=== PATIENT | female | born 1935 | race Caucasian/White ===

== ENCOUNTER → 2017-01-24 | Outpatient (CLI) | payer MEDICARE, OTHER ==
[~2017-01-24] MED LIST: ASPIRIN; BENICAR HCT 40-1 TAB PO; FISH OIL 1,0001 CAP PO; HYZAAR 100-25 T1 TAB; MULTI-VITAMIN1 TAB PO; OYSTER CALCIUM500 MG PO; PRADAXA150 MG PO; SYNTHROID PO; TOPROL XL PO; VIT C PO; ZOCOR PO
--- NOTE | ~2017-01-24 | US37 ---
[facility] A Service of [facility] RADIOLOGY TEXT RESULTS PATIENT: SUJIT REYES LOCATION: CN : 33 UNIT #: [id number] AGE: [address]: Roosevelt Ocampo MD SEX: F ORDER DR: [id number] [facility] [address] [place], [place] [address] [id number] O MR#: [id number] Acc #: [id number] NAME: SUJIT REYES : 1935 SEX: F STUDY DATE/TIME: 01/24/2017 12:40 UNIT: CNIV ROOM: STUDY DESCRIPTION: US Carotid W/Doppler Bilateral Attending Physician: Roosevelt Ocampo M.D. Referring Physician: Roosevelt Ocampo M.D. Ordering Physician: Roosevelt Ocampo M.D. Primary Care Physician: Roosevelt Ocampo M.D. MEDICAL IMAGING REPORT This report is preliminary unless electronic signature is present EXAM Carotid Doppler. INDICATIONS Atrial fibrillation. Patient has a history of high blood pressure and high cholesterol. TECHNIQUE Bilateral carotid ultrasound examination was performed using candelaria-scale, spectral Doppler, and color flow Doppler imaging. Carotid flow was assessed using standards based on NASCET methodology. FINDINGS Ultrasound examination of the carotid arteries shows calcified plaque at the carotid bifurcations bilaterally. Doppler evaluation shows normal flow velocities and normal Doppler waveforms within the carotid and vertebral arteries bilaterally. Peak systolic internal carotid artery flow velocities measure up to 71 m/sec on the right and 84 m/sec on the left. There is no evidence of significant carotid stenosis of the neck. IMPRESSION Mild carotid disease. No Doppler ultrasound evidence of flow-limiting or clinically significant carotid stenosis. Dictated by... Agustina Clarke M.D. THIS IS AN ELECTRONICALLY VERIFIED REPORT Agustina Clarke M.D. at 01/27/2017 5:22 PM AFF/jt TD: 01/24/2017 19:49 [facility] A Service [facility] RADIOLOGY TEXT RESULTS PATIENT: SUJIT REYES LOCATION: [facility] : 33 UNIT #: [id number] AGE: [address]: Roosevelt Ocampo MD SEX: F ORDER DR: [place] #: [id number] MEDICAL IMAGING REPORT Page 1 of 1 COPY
== END | disposition home or self-care (01) ==
LOC: CNIV 12:18
DX: I65.23 Occlusion and stenosis of bilateral carotid arteries (principal)
CPT/HCPCS: 93880